=== PATIENT | female | born 1990 | race African-American/Black ===

== ENCOUNTER 2017-02-17 22:15 | Emergency (ER) | payer OTHER ==
[~2017-02-17] VITALS: Ht 172.7 cm; Wt 80.8 kg
[~2017-02-17 22:15] MED LIST: ADDE5TAB PO; NAPR550 PO; TRAM50 PO; XANA1TAB6 PO; ZOFR4TAB3 SL
[2017-02-17 22:23] VITALS: BP 104/57; PULSE 95; RESP 18; TEMP 98.8; O2SAT 99
[2017-02-17 23:10] VITALS: BP 104/57; PULSE 95; RESP 18; TEMP 98.8; O2SAT 99
--- NOTE | 2017-02-17 23:18 | PD ---
HPI . Breast mass Chief Complaint: Lump, Cyst, Hernia Time Seen by Provider: 23:14 Travel History International Travel<30 days: No Contact w/Intl Traveler<30days: No Traveled to known affect area: No History of Present Illness HPI Patient presents with a painful mass in her right breast. She states that it started out as a small mass progressively larger and more painful. She denies any discharge from the mass or from her nipple. She denies any skin changes. She denies fevers and chills. She states that she has not taken anything for it prior to presentation. PFSH Past Medical History Bipolar Disorder: Yes Diminished Hearing: No Immunizations Current: Yes Tetanus Vaccination: Unknown Influenza Vaccination: No ?: Not LMP: UNKNOWN Past Surgical History Section: Yes Social History Alcohol Use: No Tobacco Use: Yes (1/2ppd) Substance Use: No Allergies-Medications (Allergen,Severity, Reaction): Coded Allergies: Seroquel (Verified Allergy, Unknown, 02/17/17) Zoloft (Verified Allergy, Unknown, 02/17/17) Reported Meds & Prescriptions Reported Meds & Active Scripts Active No Active Prescriptions or Reported Medications Review of Systems Except as stated in HPI: all other systems reviewed are Neg General / Constitutional: No: Fever, Chills Skin: Positive Breast Lumps, Positive Breast Tenderness, Positive Breast Swelling Physical Exam Narrative GENERAL: Awake and alert and in no acute distress. SKIN: Warm and dry. BREASTS: She has a tender mass of the lower outer quadrant of the right breast. There are no skin changes. There is no redness or warmth. There is no nipple discharge. It is about 4 cm in diameter. CARDIOVASCULAR: Regular rate and rhythm. RESPIRATORY: No accessory muscle use. MUSCULOSKELETAL: No obvious deformities. No edema. NEUROLOGICAL: Awake and alert. No obvious cranial nerve deficits. Motor grossly within normal limits. Normal speech. PSYCHIATRIC: Appropriate mood and affect; insight and judgment normal. I checked the mass with the ultrasound machine just to see if I could see any fluid in the mass. There did appear to be some fluid. Data Data Last Documented VS Vital Signs Date Time Temp Pulse Resp B/P Pulse Ox O2 Delivery O2 Flow Rate FiO2 02/17/17 23:12 95 18 02/17/17 23:10 98.8 104/57 99 Orders Ed Poc Ultrasound (02/17/17 23:14) Clindamycin (Cleocin) (02/17/17 23:30) Acetamin-Hydrocod 325-5 Mg (Drayton 5-325 (02/17/17 23:30) MDM Medical Decision Making Medical Screen Exam Complete: Yes Emergency Medical Condition: Yes Differential Diagnosis Differential diagnosis includes fibrocystic disease, mastitis, breast cancer Narrative Course Patient presents with a painful right breast mass. I will treat her presumptively for mastitis and will refer her to a surgeon for further evaluation. Diagnosis Primary Impression: Breast mass, right Referrals: Chris Salcido MD 3 days Patient Instructions: Narcotic given in the ED Med/Other Pt SpecificInfo: Prescription(s) given Scripts Hydrocodone-Acetaminophen (Drayton)5-325 mg Tab1-2 Tab PO Q6H PRN (PAIN) #12 TAB Ref 0 Prov:Nolvia Gonzalez MD 02/17/17 Clindamycin (Cleocin)300 Mg Plw661 Mg PO Q8H 10 Days Ref 0 Prov:Nolvia Gonzalez MD 02/17/17 Disposition: 01 DISCHARGE HOME Condition: Stable Nolvia Gonzalez MD Feb 17, 2017 23:18
[2017-02-17] MEDS ORDERED: ACETAMINOPHEN/HYDROcodone 325 MG/5 MG TAB PO ONE (23:30)
[2017-02-17] MEDS ORDERED: CLINDAMYCIN 150 MG CAP PO ONE (23:30)
[2017-02-17] MEDS ORDERED: CLEO300C2 PO (23:46)
[2017-02-17] MEDS ORDERED: NORC5TAB PO (23:46)
[2017-02-18 00:12] VITALS: BP 114/56
[2017-02-18 00:13] VITALS: RESP 18
== END 2017-02-18 00:28 | disposition home or self-care (01) ==
LOC: PHED 22:15
DX: N63 Unspecified lump in breast (principal); N64.4 Mastodynia; F17.200 Nicotine dependence, unspecified, uncomplicated; Z86.59 Personal history of other mental and behavioral disorders
CPT/HCPCS: 99283

== ENCOUNTER 2017-09-02 07:23 | Emergency (ER) | payer OTHER ==
[~2017-09-02 07:23] MED LIST changes: -ADDE5TAB PO; +CLEO300C2 PO; -NAPR550 PO; +NORC5TAB PO; -TRAM50 PO; -XANA1TAB6 PO; -ZOFR4TAB3 SL
[2017-09-02 07:28] VITALS: BP 114/74; PULSE 87; RESP 18; TEMP 98.5; O2SAT 100
[2017-09-02] MEDS ORDERED: SODIUM CHLOR 0.9% 1000 ML INJ 1,000 ML IV ONE (07:45)
[2017-09-02] MEDS ORDERED: SODIUM CHLORIDE 0.9% FLUSH 10 ML FLUSH IVF PRN (07:45)
[2017-09-02] MEDS ORDERED: MORPHINE SULFATE 4 MG/ML INJ IV PUSH ONE (07:45)
--- NOTE | 2017-09-02 08:02 | RADRPT ---
EXAM DATE/TIME: 09/02/2017 07:46 [facility] COMPARISON: No previous studies available for comparison. INDICATIONS : Short of breath MEDICAL HISTORY : Carcinoma, breast. SURGICAL HISTORY : Mastectomy, right. Port placement ENCOUNTER: Initial ACUITY: 4 - 6 months PAIN SCORE: 0/10 LOCATION: Bilateral chest FINDINGS: The heart is normal in size. The lungs are clear. The patient is post right mastectomy. There is a ti ssue correspondence coordinator in place. The bony structures are intact. CONCLUSION: 1. No acute cardiopulmonary findings. Camilo Miner MD on September 02, 2017 at 8:00 Board Certified Radiologist. This report was verified electronically.
[2017-09-02 08:03] VITALS: BP 119/66; PULSE 75; RESP 18; O2SAT 100
[2017-09-02 08:10] LABS: AUTOMATED NEUTROPHIL # 3.9 TH/MM3 (1.8-7.7); BASOPHIL # 0.1 TH/MM3 (0-0.2); BASOPHIL % 0.9 % (0.0-2.0); EOSINOPHIL % 0.6 % (0.0-4.0); HEMATOCRIT 27.7 % (35.0-46.0); LYMPHOCYTE # 1.8 TH/MM3 (1.0-4.8); MEAN CELL VOLUME 65.2 FL (80.0-100.0); MEAN CORPUSCULAR HEMOGLOBIN 19.5 PG (27.0-34.0); NEUT % 64.5 % (16.0-70.0); PLATELET COUNT 384 TH/MM3 (150-450); RED BLOOD COUNT 4.24 MIL/MM3 (4.00-5.30); WHITE BLOOD COUNT 6.1 TH/MM3 (4.0-11.0)
[2017-09-02 08:11] LABS: HEMO FLAGS AUTO DIFF
[2017-09-02 08:12] LABS: CHLORIDE 108 MEQ/L (98-107); POTASSIUM 3.9 MEQ/L (3.5-5.1); SODIUM (NA) 140 MEQ/L (136-145)
[2017-09-02 08:15] LABS: ANION GAP 7 MEQ/L (5-15); BICARBONATE 25.2 MEQ/L (21.0-32.0)
[2017-09-02 08:16] LABS: APTT (PATIENT) 25.7 SEC (24.3-30.1); BLOOD UREA NITROGEN 13 MG/DL (7-18); PROTHROMBIN TIME - PATIENT 11.6 SEC (9.8-11.6)
[2017-09-02 08:18] LABS: ALT (GPT) 14 U/L (10-53)
[2017-09-02 08:19] LABS: AST (GOT) 10 U/L (15-37); GLOMERULAR FILTRATION RATE 147 ML/MIN (>89)
[2017-09-02 08:20] LABS: TOTAL BILIRUBIN ADULT 0.3 MG/DL (0.2-1.0)
[2017-09-02 08:21] LABS: ALKALINE PHOSPHATASE 66 U/L (45-117)
--- NOTE | 2017-09-02 08:27 | PD ---
HPI Chief Complaint: Wound/Suture/Staple Re-Check Time Seen by Provider: 07:33 Travel History International Travel<30 days: No Contact w/Intl Traveler<30days: No Traveled to known affect area: No History of Present Illness HPI Patient is a 27-year-old female who presents to emergency room complaints of right-sided chest pain. Patient reports that she was diagnosed with breast cancer, reports that she had a mastectomy in [place] [address] Barry. She has had 3 revisions due to infection reports that her last visit with her surgeon was on Saturday. Patient reports that her absorbable sutures were dissolving too fast, she required regular sutures placed on Saturday by her surgeon. Patient reports that for the past month and a half, she has been having increased right- sided chest pain. Patient reports that pain has been constant, reports that is sharp and stabbing in nature and is associated with shortness of breath. Reports that pain is nonradiating in nature. Reports that her surgeon keeps telling her that her pain is due to infection and healing. Patient reports that she currently is not on any antibiotics. Patient denies history of ACS, arrhythmia, hypertension or hyperlipidemia or diabetes. Patient with no family history of early coronary disease. Patient at this time with no fevers or chills, no other complaints. PFSH Past Medical History Bipolar Disorder: Yes Cancer: Yes Diminished Hearing: No Immunizations Current: Yes Influenza Vaccination: No ?: Not Past Surgical History Section: Yes Mastectomy: Yes (RIGHT) Social History Alcohol Use: No Tobacco Use: Yes (1/2ppd) Substance Use: No Allergies-Medications (Allergen,Severity, Reaction): Coded Allergies: quetiapine (Unverified Allergy, Unknown, 09/02/17) sertraline (Unverified Allergy, Unknown, 09/02/17) Reported Meds & Prescriptions Reported Meds & Active Scripts Active No Active Prescriptions or Reported Medications Review of Systems General / Constitutional: No: Fever, Chills Eyes: No: Visual changes HENT: No: Headaches Cardiovascular: Positive: Chest Pain or Discomfort, No: Palpitations, Irregular Rhythm, Tachycardia, Diaphoresis, Syncope Respiratory: Positive: Shortness of Breath, No: Cough, Wheezing Gastrointestinal: No: Abdominal Pain Genitourinary: No: Dysuria Musculoskeletal: No: Pain Skin: No Rash Neurologic: No: Weakness Psychiatric: No: Depression Endocrine: No: Polydipsia Hematologic/Lymphatic: No: Easy Bruising Physical Exam Narrative GENERAL: moderate distress SKIN: Focused skin assessment warm/dry. HEAD: Atraumatic. Normocephalic. EYES: Pupils equal and round. No scleral icterus. No injection or drainage. ENT: No nasal bleeding or discharge. Mucous membranes pink and moist. NECK: Trachea midline. No JVD. CARDIOVASCULAR: Regular rate and rhythm. No murmur appreciated. Patient with incisions which are clean/dry/intact, no drainage or pus from surgical site, there is no signs of erythema or infection RESPIRATORY: No accessory muscle use. Clear to auscultation. Breath sounds equal bilaterally. GASTROINTESTINAL: Abdomen soft, non-tender, nondistended. Hepatic and splenic margins not palpable. MUSCULOSKELETAL: No obvious deformities. No clubbing. No cyanosis. No edema. NEUROLOGICAL: Awake and alert. No obvious cranial nerve deficits. Motor grossly within normal limits. Normal speech. PSYCHIATRIC: Appropriate mood and affect; insight and judgment normal. Data Data Last Documented VS Vital Signs Date Time Temp Pulse Resp B/P (MAP) Pulse Ox O2 Delivery O2 Flow Rate FiO2 09/02/17 08:26 16 09/02/17 08:03 75 119/66 (83) 100 Room Air 09/02/17 07:28 98.5 Orders Orders Electrocardiogram (09/02/17 07:39) Ckmb (Isoenzyme) Profile (09/02/17 07:39) Complete Blood Count With Diff (09/02/17 07:39) Comprehensive Metabolic Panel (09/02/17 07:39) Prothrombin Time / Inr (Pt) (09/02/17 07:39) Act Partial Throm Time (Ptt) (09/02/17 07:39) Troponin I (09/02/17 07:39) Chest, Single Ap (09/02/17 07:39) Ecg Monitoring (09/02/17 07:39) Iv Access Insert/Monitor (09/02/17 07:39) Oximetry (09/02/17 07:39) Sodium Chloride 0.9% Flush (Ns Flush) (09/02/17 07:45) Ct Pulmonary Angiogram (09/02/17 07:39) Ed Urine Pregnancytest Poc (09/02/17 07:39) Sodium Chlor 0.9% 1000 Ml Inj (Ns 1000 M (09/02/17 07:45) Morphine Inj (Morphine Inj) (09/02/17 07:45) Iohexol 350 Inj (Omnipaque 350 Inj) (09/02/17 08:51) Labs Laboratory Tests Test 09/02/17 07:52 White Blood Count 6.1 TH/MM3 Red Blood Count 4.24 MIL/MM3 Hemoglobin 8.3 GM/DL Hematocrit 27.7 % Mean Corpuscular Volume 65.2 FL Mean Corpuscular Hemoglobin 19.5 PG Mean Corpuscular Hemoglobin Concent 30.0 % Red Cell Distribution Width 19.0 % Platelet Count 384 TH/MM3 Mean Platelet Volume 9.6 FL Neutrophils (%) (Auto) 64.5 % Lymphocytes (%) (Auto) 29.0 % Monocytes (%) (Auto) 5.0 % Eosinophils (%) (Auto) 0.6 % Basophils (%) (Auto) 0.9 % Neutrophils # (Auto) 3.9 TH/MM3 Lymphocytes # (Auto) 1.8 TH/MM3 Monocytes # (Auto) 0.3 TH/MM3 Eosinophils # (Auto) 0.0 TH/MM3 Basophils # (Auto) 0.1 TH/MM3 CBC Comment AUTO DIFF Differential Comment AUTO DIFF CONFIRMED Platelet Estimate NORMAL Platelet Morphology Comment NORMAL Ovalocytes 2+ Stomatocytes 1+ Keratocytes 1+ Prothrombin Time 11.6 SEC Prothromb Time International Ratio 1.0 RATIO Activated Partial Thromboplast Time 25.7 SEC Blood Urea Nitrogen 13 MG/DL Creatinine 0.60 MG/DL Random Glucose 89 MG/DL Total Protein 7.4 GM/DL Albumin 4.0 GM/DL Calcium Level 8.8 MG/DL Alkaline Phosphatase 66 U/L Aspartate Amino Transf (AST/SGOT) 10 U/L Alanine Aminotransferase (ALT/SGPT) 14 U/L Total Bilirubin 0.3 MG/DL Sodium Level 140 MEQ/L Potassium Level 3.9 MEQ/L Chloride Level 108 MEQ/L Carbon Dioxide Level 25.2 MEQ/L Anion Gap 7 MEQ/L Estimat Glomerular Filtration Rate 147 ML/MIN Total Creatine Kinase 78 U/L Troponin I LESS THAN 0.02 NG/ML MDM Medical Decision Making Medical Screen Exam Complete: Yes Emergency Medical Condition: Yes Medical Record Reviewed: Yes Interpretation(s) EKG at 0751: NSR at 75bpm, qt/qtc: 383/412, no acute st or t wave changes Vital Signs Date Time Temp Pulse Resp B/P (MAP) Pulse Ox O2 Delivery O2 Flow Rate FiO2 09/02/17 08:03 75 18 119/66 (83) 100 Room Air 09/02/17 07:28 98.5 87 18 114/74 (87) 100 Differential Diagnosis Differential includes breast infection, PE, ACS, arrhythmia, pneumothorax Narrative Course Patient is a 27 year old female who presents to ER with c/o of right sided chest pain which has been constant and persistent for the past month and a half. Patient reports pain as sharp and stabbing and constant in nature with associated sob. Patient was placed on a playground monitor upon arrival to ER. EKG was obtained. Patient with non acute EKG. Lab work including CE x 1 set, ekg ordered to R/O infectious etiology of chest pain including but not limited to pericarditis/endocarditis. CTA of chest ordered to evaluate for possible PE as patient does have SOB with her chest pain. IVF as well as morphine ordered for pain Vital Signs Date Time Temp Pulse Resp B/P (MAP) Pulse Ox O2 Delivery O2 Flow Rate FiO2 09/02/17 08:26 16 09/02/17 08:03 75 18 119/66 (83) 100 Room Air 09/02/17 07:28 98.5 87 18 114/74 (87) 100 CBC & BMP Diagram 09/02/17 07:52 Total Protein 7.4, Albumin 4.0, Calcium Level 8.8, Alkaline Phosphatase 66, Aspartate Amino Transf (AST/SGOT) 10 L, Alanine Aminotransferase (ALT/SGPT) 14, Total Bilirubin 0.3 Patient with anemia with a hemoglobin 8.3, hemoglobin 9.4 on August 09, 2016 Chief: Less than 0.02, total CK 78 X-ray of the chest shows no acute cardiopulmonary findings CTA: CONCLUSION: No PE is identified. Additionally, there is no acute abnormality identified to explain the patient's chest pain I reviewed all labs and all studies with patient in detail. Patient with most likely post op chest pain given her symptoms and description of pain. She does not suffer typical anginal chest pain. Patient will follow up with her surgeon as soon a as possible. Copies of her labs and studies were given to her at discharge. Patient requesting refills on her percocet as she has run out of her pain medications. Signs and symptoms of when to return to the ER was reviewed with patient in detail. Diagnosis Primary Impression: Chest pain Qualified Codes: R07.9 - Chest pain, unspecified Additional Impression: Anemia Qualified Codes: D64.9 - Anemia, unspecified Patient Instructions: General Instructions Departure Forms: Tests/Procedures, Work Release Enter return to work date: Sep 03, 2017 Additional Instructions: Please provide patient with a copy of her studies and lab work at discharge Please follow up with your primary care doctor Please follow up with your surgeon Return to ER as needed Return to ER if symptoms worsen or progress Scripts Oxycodone-Acetaminophen (Percocet) 5-325 mg Tab 1 TAB PO Q6H Y for PAIN, #10 TAB 0 Refills Prov: Linda De Oliveira DO 09/02/17 Disposition: 01 DISCHARGE HOME Condition: Stable Linda De Oliveira DO Sep 02, 2017 08:27
[2017-09-02 08:46] LABS: CREATINE KINASE 78 U/L (26-192)
[2017-09-02] MEDS ORDERED: IOHEXOL 350 MG/ML 10 ML VIAL (for RAD DIAG) IVCONTRAST ONE (08:51)
--- NOTE | 2017-09-02 08:59 | RADRPT ---
EXAM DATE/TIME: 09/02/2017 08:39 [facility] COMPARISON: CT ABDOMEN & PELVIS W/O CONTRAST, August 10, 2016, 0:00. INDICATIONS : Right sided chest pain after surgery a week ago for incisional repair of right mastectomy. IV CONTRAST: 65 cc Omnipaque 350 (iohexol) IV RADIATION DOSE: 11.01 CTDIvol (mGy) MEDICAL HISTORY : Carcinoma, breast. SURGICAL HISTORY : Mastectomy, right. ENCOUNTER: Initial ACUITY: 1 week PAIN SCALE: 4/10 LOCATION: Right chest TECHNIQUE: Volumetric scanning of the chest was performed using a pulmonary embolism protocol MIP images were re constructed. Using automated exposure control and adjustment of the mA and/or kV according to patien t size, radiation dose was kept as low as reasonably achievable to obtain optimal diagnostic quality images. DICOM format image data is available electronically for review and comparison. Follow-up recommendations for detected pulmonary nodules are based at a minimum on nodule size and pa tient risk factors according to Fleischner Society Guidelines. FINDINGS: PULMONARY ARTERIES: No filling defects are seen in the pulmonary arteries through the segmental level. LUNGS: There is no consolidation or pneumothorax . No concerning pulmonary nodule is visualized. PLEURAE: There is no pleural thickening or pleural effusion. MEDIASTINUM: There is good visualization of the great vessels of the middle mediastinum. No evidence of mediastin al or hilar adenopathy/mass. MUSCULOSKELETAL: Within normal limits. MISCELLANEOUS: The visualized upper abdominal organs demonstrate no acute abnormality. 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 CONCLUSION: No PE is identified. Additionally, there is no acute abnormality identified to explain the patient's chest pain. Aime Pack MD on September 02, 2017 at 8:55 Board Certified Radiologist. This report was verified electronically.
[2017-09-02 09:04] LABS: KERATOCYTES 1+ (NORMAL); OVALOCYTES 2+ (NORMAL)
[2017-09-02 09:05] LABS: PLATELET ESTIMATE SMEAR NORMAL (NORMAL); PLATELET MORPHOLOGY NORMAL (NORMAL); SCAN/DIFF AUTO DIFF CONFIRMED; STOMATOCYTES 1+ (NORMAL)
[2017-09-02] MEDS ORDERED: PERC5TAB12 PO (09:18)
[2017-09-02 09:31] VITALS: BP 112/61; PULSE 67; RESP 16; O2SAT 100
--- NOTE | 2017-09-02 21:48 | EKG ---
Date Performed: 09/02/2017 Time Performed: 07:51:33 PTAGE: 27 years EKG: Sinus rhythm NORMAL ECG NO PREVIOUS TRACING DOCTOR: Kwaku Braun Interpretating Date/Time 09/02/2017 21:47:30
== END 2017-09-02 09:45 | disposition home or self-care (01) ==
LOC: PHED 07:23
DX: C50.919 Malignant neoplasm of unspecified site of unspecified female breast (principal); D64.9 Anemia, unspecified; R06.02 Shortness of breath
CPT/HCPCS: 71010; 71275; 80053; 82550; 84484; 84703; 85025; 85610; 85730; 93005; 96361; 96374; 99285; J2270; J7030; Q9967